=== PATIENT | male | born 1995 | race Caucasian/White ===

== ENCOUNTER 2019-03-13 00:51 | Emergency (ER) | payer OTHER ==
--- NOTE | 2019-03-13 01:35 | ED Physician Documentation ---
PD HPI UPPER EXT INJURY - Stated complaint Stated Complaint: FINGER PX - Chief complaint Chief Complaint: Ext Problem - History obtained from History obtained from: Patient - History of Present Illness Location: Right, Finger (index finger tip crushed in folding chair. Small lac, swelling, and also blood under nail.) Type of injury: Crush Where injury occurred: Work Timing - onset: Today (just [employer]) Timing - details: Abrupt onset, Still present Worsened by: Moving, Palpating Associated symptoms: Swelling, Discolored (bruising under nail with pressure.). No: Weakness, Numbness Similar symptoms before: Has not had sx before Review of Systems Skin: reports: Laceration (s) Neurologic: denies: Focal weakness, Numbness PD PAST MEDICAL HISTORY - Past Medical History Past Medical History: No Cardiovascular: None Respiratory: None Neuro: None Endocrine/Autoimmune: None GI: None : None HEENT: None Psych: None Musculoskeletal: None Derm: None - Past Surgical History Past Surgical History: No - Allergies Allergies/Adverse Reactions: Allergies Allergy/AdvReac Type Severity Reaction Status Date / Time No Known Drug Allergies Allergy Verified 03/13/19 01:02 - Social History Does the pt smoke?: Yes Smoking Status: Current every day smoker Does the pt drink ETOH?: No Does the pt have substance abuse?: No - Immunizations Immunizations are current?: Yes - POLST Patient has POLST: No PD ED PE NORMAL - Vitals Vital signs reviewed: Yes - General General: Alert and oriented X 3, No acute distress, Well developed/nourished - Derm Derm: Normal color, Warm and dry - Extremities Extremities: Other (right index finger tip with swelling and tender. Small lac anteriorly with edges close together. No FB. Small bruising of skin. There is also subungual hematoma with slight lifting of the nail due to swelling. ) - Neuro Neuro: Alert and oriented X 3, No motor deficit (he can flex and extend at the DIP, but hurts.), No sensory deficit, Normal speech Results - Vitals Vitals: Vital Signs - 24 hr 03/13/19 03/13/19 03/13/19 01:01 02:22 03:48 Temperature 36.8 C Heart Rate 88 90 Respiratory 17 17 16 Rate Blood Pressure 129/73 113/74 O2 Saturation 98 98 Oxygen O2 Source Room air - Rads (name of study) finger xray Radiology: Prelim report reviewed, See rad report (no fractures) PD MEDICAL DECISION MAKING - ED course Complexity details: reviewed results, considered differential (the subungual hematoma was decompressed with cautery to burn hole in nail. Benzoin and steri strips place on anterior aspect fingertip. ), d/w patient Departure - Departure Disposition: 01 Home, Self Care Clinical Impression: Subungual hematoma Crush injury to finger Qualifiers: Encounter type: initial encounter Qualified Code(s): S67.10XA - Crushing injury of unspecified finger(s), initial encounter Finger laceration Qualifiers: Encounter type: initial encounter Finger: index finger Damage to nail status: with damage Foreign body presence: without foreign body Laterality: right Qualified Code(s): S61.310A - Laceration without foreign body of right index finger with damage to nail, initial encounter Condition: Stable Record reviewed to determine appropriate education?: Yes Instructions: ED Crush Injury Finger No Fx, ED Hematoma Subungual Follow-Up: ANABELLA DIOP DO [Primary Care Provider] - Comments: Tylenol or ibuprofen as needed for pains. Ice and rest for the finger. Use a finger splint to protect it as needed. No fractures are seen on the x-ray. The finger should feel better as the swelling goes down over the next couple of days. Keep the finger clean and dry otherwise and allow the tapes and glue to fall off on their own over several days. At that point then assume normal wound care with cleaning soap and water and applying ointment and Band-Aid. Discharge Date/Time: 03/13/19 03:48
[2019-03-13] MEDS ORDERED: ACETAMINOPHEN 325 MG TABLET PO STA (02:02)
[2019-03-13] MEDS ORDERED: IBUPROFEN 600 MG TABLET PO STA (02:02)
--- NOTE | 2019-03-13 03:06 | XRAY Report ---
Reason: crush injury right index finger Procedure Date: 03/13/2019 Accession Number: [id number] / [id number] Procedure: XR - Finger(s) RT CPT Code: Final Report FULL RESULT: EXAM: RIGHT 1st/2nd/3rd/4th/5th DIGIT RADIOGRAPHY EXAM DATE: 03/13/2019 02:50 AM. CLINICAL HISTORY: Crush injury right index finger. COMPARISON: None. TECHNIQUE: 3 views. FINDINGS: Bones: Normal. No fracture or bone lesion. Joints: Normal. No subluxations. Soft Tissues: There is subtle soft tissue swelling. No radiopaque foreign bodies. IMPRESSION: Subtle soft tissue swelling around the second digit. RADIA
[2019-03-13 03:48] VITALS: BP 113/74
== END 2019-03-13 03:48 | disposition home or self-care (01) ==
LOC: ED 00:51
DX: S67.190A Crushing injury of right index finger, initial encounter (principal); S61.310A Laceration without foreign body of right index finger with damage to nail, initial encounter; W23.0XXA Caught, crushed, jammed, or pinched between moving objects, initial encounter; Y99.0 Civilian activity done for income or pay; F17.200 Nicotine dependence, unspecified, uncomplicated
CPT/HCPCS: 11740; 73140; 99283; A9270

== ENCOUNTER 2019-10-09 16:35 | Emergency (ER) | payer OTHER ==
--- NOTE | 2019-10-09 17:33 | ED Physician Documentation ---
PD HPI HEAD INJURY - Stated complaint Stated Complaint: HEAD INJ - Chief complaint Chief Complaint: Trauma Hd/Nk - History obtained from History obtained from: Patient - History of Present Illness Mechanism of head injury: Blow (he was under jet wing and stood up, striking top of head. Says he felt off balance, nauseated and lightheaded for several minutes. Still feeling a little lightheaded with movmenet. Minimal headache and just local to injury.) Where head injury occurred: Work Timing - onset: How many hours ago (1), Today Location of injury: Top Quality of pain: Pain Associated symptoms: AMS (felt lightheaded and has not fully resolved. No ataxia on gait.), Nausea / vomiting (nauseated for 5-10 minutes). No: LOC, Amnesia, Neck pain Symptoms improve with: Rest Contributing factors: No: Anticoagulated, Intoxicated Similar symptoms before: Has not had sx before Review of Systems Constitutional: denies: Fever Nose: denies: Rhinorrhea / runny nose, Congestion Throat: denies: Sore throat Respiratory: denies: Cough GI: reports: Nausea. denies: Vomiting Musculoskeletal: denies: Neck pain Neurologic: reports: Headache (just at injury area scalp). denies: Focal weakness, Numbness, Confused, LOC PD PAST MEDICAL HISTORY - Past Medical History Past Medical History: No Cardiovascular: None Respiratory: None Neuro: None Endocrine/Autoimmune: None GI: None : None HEENT: None Psych: None Musculoskeletal: None Derm: None - Past Surgical History Past Surgical History: No - Present Medications Home Medications: Ambulatory Orders Medication Instructions Recorded Confirmed No Known Home Medications 10/09/19 10/09/19 - Allergies Allergies/Adverse Reactions: Allergies Allergy/AdvReac Type Severity Reaction Status Date / Time No Known Drug Allergies Allergy Verified 10/09/19 16:49 - Social History Does the pt smoke?: Yes Smoking Status: Current some day smoker Does the pt drink ETOH?: Yes ETOH Use: Beer Does the pt have substance abuse?: No - Immunizations Immunizations are current?: Yes - POLST Patient has POLST: No PD ED PE NORMAL - Vitals Vital signs reviewed: Yes - General General: Alert and oriented X 3, No acute distress, Well developed/nourished - HEENT HEENT: PERRL, EOMI, Pharynx benign, Other (local scalp tenderness without swelling. ) - Neck Neck: Supple, no meningeal sign, No bony TTP, No adenopathy - Derm Derm: Normal color, Warm and dry - Neuro Neuro: Alert and oriented X 3, lens edge grinder machine 2-12 intact, No motor deficit, No sensory deficit, Normal speech, Other (normal gait and normal cerebellar testing. ) Eye Opening: Spontaneous Motor: Obeys Commands Verbal: Oriented GCS Score: 15 Results - Vitals Vitals: Vital Signs - 24 hr 10/09/19 10/09/19 16:40 17:53 Temperature 36.6 C Heart Rate 87 83 Respiratory 18 14 Rate Blood Pressure 119/72 107/66 O2 Saturation 98 98 Oxygen O2 Source Room air PD MEDICAL DECISION MAKING - ED course Complexity details: considered differential (mild concussive symptoms; not concerning enough for imaging by head injury guidelines. 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 ), d/w patient Departure - Departure Disposition: 01 Home, Self Care Clinical Impression: Head contusion Qualifiers: Encounter type: initial encounter Contusion of head detail: scalp Qualified Code(s): S00.03XA - Contusion of scalp, initial encounter Mild concussion Qualifiers: Encounter type: initial encounter Loss of consciousness presence/duration: without LOC Qualified Code(s): S06.0X0A - Concussion without loss of consciousness, initial encounter Condition: Stable Record reviewed to determine appropriate education?: Yes Instructions: ED Concussion Follow-Up: ANABELLA DIOP DO [Primary Care Provider] - Comments: Light activity at home is okay. Its okay to sleep. I would suggest being off work for 2 days due to the mild concussive symptoms in case there is some sluggishness on reflexes or critical decision-making. Otherwise stay hydrated and Tylenol or ibuprofen for headache. Recheck if not completely back to normal within a couple of days. Forms: Activity restrictions Discharge Date/Time: 10/09/19 18:08
[2019-10-09 17:54] VITALS: BP 107/66
[2019-10-09] MEDS ORDERED: IBUPROFEN 600 MG TABLET PO STA (17:56)
== END 2019-10-09 18:08 | disposition home or self-care (01) ==
LOC: ED 16:35
DX: S00.03XA Contusion of scalp, initial encounter (principal); S06.0X0A Concussion without loss of consciousness, initial encounter; W22.8XXA Striking against or struck by other objects, initial encounter; Y99.0 Civilian activity done for income or pay; F17.200 Nicotine dependence, unspecified, uncomplicated
CPT/HCPCS: 99282; 99284; A9270